=== PATIENT | male | born 1955 | race Caucasian/White ===

== ENCOUNTER 2016-04-22 05:39 | Inpatient (IN) | END 2016-05-07 19:32 | DRG 377 | DX: K92.2 Gastrointestinal hemorrhage, unspecified (principal); G93.40 Encephalopathy, unspecified; N17.9 Acute kidney failure, unspecified; K85.90 Acute pancreatitis without necrosis or infection, unspecified; A04.7 Enterocolitis due to Clostridium difficile; E87.2 Acidosis; I50.22 Chronic systolic (congestive) heart failure; K70.40 Alcoholic hepatic failure without coma; D72.829 Elevated white blood cell count, unspecified; D69.6 Thrombocytopenia, unspecified; K70.30 Alcoholic cirrhosis of liver without ascites; N18.9 Chronic kidney disease, unspecified ==

== ENCOUNTER 2016-06-01 21:41 | Inpatient (IN) | payer OTHER ==
[~2016-06-01] VITALS: Ht 165.1 cm; Wt 55.6 kg
[~2016-06-01 21:41] MED LIST: ALDS PO; HYDR-3498 PO; LACT20SO12 PO; LAS20 PO; METO25TA7 PO; MULTI PO; ONDA4VIA2 IV; PANT40TA4 PO; THIA100T56 PO
[2016-06-01 21:47] VITALS: Ht 165.1 cm; Wt 55.6 kg
[2016-06-01] MEDS ORDERED: SODIUM CHLORIDE 0.9% 1L BAG IV* STA (21:53)
[2016-06-01] MEDS ORDERED: ACET-2047 PO (22:22)
[2016-06-01] MEDS ORDERED: FERR324T7 PO (22:23)
[2016-06-01] MEDS ORDERED: CYCL-319 PO (22:23)
[2016-06-01] MEDS ORDERED: HYDR-906 PO (22:25)
[2016-06-01] MEDS ORDERED: SIME80TA PO (22:26)
[2016-06-01] MEDS ORDERED: OMEP20CA16 PO (22:26)
[2016-06-01] MEDS ORDERED: RIFA550T4 PO (22:27)
--- NOTE | 2016-06-01 22:58 | RADRPT ---
PROCEDURE: Chest. CLINICAL INDICATION: Chest pain. TECHNIQUE: Single frontal view of the chest was obtained. COMPARISON: 03/15/2016. FINDINGS: The cardiac silhouette is within normal limits. The aortic arch is unremarkable. There is no focal consolidation, vascular congestion or pleural effusion. There is mild right basilar atelectasis/sca rring. There is no pneumothorax. IMPRESSION: Right basilar atelectasis/scarring. .Glen Galeano MD, MD Date Time Electronically viewed and signed by .Glen Galeano MD, on 06/01/2016 22:58 .T/
[2016-06-01 23:07] LABS: INR 2.28; PARTIAL THROMBOPLASTIN TIME 33.1 Sec (25.0-35.0); PROTIME 25.4 Sec (12.2-14.2)
[2016-06-01 23:09] LABS: ALBUMIN 2.4 g/dl (3.3-4.9); CHLORIDE 92 mmol/L (97-110); MEAN CORPUSCULAR VOLUME 95.8 fl (82.0-101.0); MEAN PLATELET VOLUME 7.5 fl (7.4-10.4); PLATELET COUNT 147 10^3/UL (140-440); RED BLOOD COUNT 3.97 10^6/ul (4.70-6.10); RED CELL DISTRIBUTION WIDTH 19.3 % (11.5-14.5); SODIUM 123 mmol/L (135-144)
[2016-06-01 23:11] LABS: CREATININE 1.43 mg/dl (0.61-1.24)
[2016-06-01 23:12] LABS: ALANINE AMINOTRANSFERASE 33 IU/L (13-69); ALBUMIN/GLOBULIN RATIO 0.57; ALKALINE PHOSPHATASE 172 IU/L (42-121); ANION GAP 17 (8-16); ASPARTATE AMINO TRANSFERASE 50 IU/L (15-46); BILIRUBIN,INDIRECT 1.2 mg/dl (0-1.1); BILIRUBIN,TOTAL 1.2 mg/dl (0.2-1.3); BLOOD UREA NITROGEN 47 mg/dl (7-20); CARBON DIOXIDE 20 mmol/L (21-31); GLUCOSE 154 mg/dl (70-220); TOTAL PROTEIN 6.6 g/dl (6.1-8.1)
[2016-06-01 23:13] LABS: CALCIUM 11.5 mg/dl (8.4-10.2); CONDITION 1; LH ANALYZER COMMENTS 1; MEAN CORPUSCULAR HEMOGLOBIN 32.8 pg (29.0-33.0); MEAN CORPUSCULAR HGB CONC 34.2 g/dl (32.0-37.0); SUSPECT 1
--- NOTE | 2016-06-01 23:13 | RADRPT ---
PROCEDURE: CT Brain without contrast. CLINICAL INDICATION: Weakness and nonacute stroke TECHNIQUE: A CT of the brain was performed on a [employer] 64-slice CT scanner utilizing axial imaging from the skull base through the vertex without IV contrast. Multiplanar reformatted images were made. Images were reviewed on a PACS workstation. The CTDIvol is 40.45 mGy and the DLP is 808 .27 mGycm. One of the following 3 dose reduction techniques were used: Automated exposure control; adjustment of the mA and/or kV according to patient size; or use of iterative reconstruction technique. COMPARISON: Brain MRI 04/28/2016 FINDINGS: There is no intracranial hemorrhage, mass effect, or midline shift. No extra-axial fluid collection is seen. The ventricles and sulci are age appropriate. Mild diffuse volume loss is present. Mild decreased attenuation is present in the bilateral centrum semiovale and periventricular white matter compatible with mild chronic microvascular ischemic disease. mild vascular calcifications are pres ent of the intracranial internal carotid arteries. The visualized scalp and calvarium are normal. The bilateral orbits are normal. The bilateral para nasal sinuses, mastoid air cells and middle ear cavities are clear. IMPRESSION: 1. No evidence of acute intracranial hemorrhage, infarcts or acute intracranial pathology 2. Mild chronic microvascular ischemic disease and mild diffuse volume loss 3. Mild atherosclerotic vascular disease RPTAT: HDC .Pretty Ding MD, MD Date Time Electronically viewed and signed by .Pretty Ding MD, MD on 06/01/2016 23:13 .C/
--- NOTE | 2016-06-01 23:30 | RADRPT ---
PROCEDURE: CT Abdomen and pelvis without contrast. CLINICAL INDICATION: Abdominal pain. TECHNIQUE: CT scan of the abdomen and pelvis was performed on a multi-detector high-resolution CT scanner. Contiguous axial images were obtained from the lung bases to the ischial tuberosities wit hout intravenous contrast. Coronal and sagittal reformatted images were also obtained. Images were reviewed on the PACS workstation. One or more of the following dose reduction techniques were used: - Automated exposure control. - Adjustment of the mA and/or kV according to patient size. - Use of iterative reconstruction technique. Exam CTD/vol = 9.56 mGy. Total exam DLP = 549.74 mGy-cm. COMPARISON: Correlation is made with the MR done 03/12/2016. FINDINGS: Evaluation of the lung bases demonstrates mild right basilar atelectasis and small pleural effusion. Abdomen: The liver is normal in size with a diffuse nodular contour. There is no focal mass or dil atation of the biliary tree. The gallbladder is not distended. The spleen and pancreas are within normal limits. There is thickening of bilateral adrenal glands. Bilateral kidneys are normal in si ze with no contour deforming mass identified. There is no radiopaque renal or ureteral calculus giovanna ntified. There is no hydronephrosis or hydroureter. There is no retroperitoneal adenopathy. The a bdominal aorta is of normal caliber with mild scattered atherosclerotic calcifications. The stomach is moderately distended. There is moderate thickening of the transverse, descending and sigmoid colon with mild adjacent stranding. There is no bowel obstruction or free air. A normal a ppendix is partially visualized. There is no diverticulosis or diverticulitis. There is mild free fluid. Pelvis: The bladder is unremarkable. The prostate and seminal vesicles are within normal limits. There is no significant pelvic adenopathy or free fluid. Evaluation of the osseous structures demonstrates no suspicious lytic or blastic lesion. There is a defect of the left pars interarticularis of L5. IMPRESSION: Moderate thickening of the mid to distal colon represents nonspecific infectious/inflammatory coliti s. Clinically correlate with C difficile colitis. Moderately distended stomach. Mild right basilar atelectasis and small pleural effusion. Diffuse nodular contour of the liver suggestive of cirrhosis. Clinically correlate. Mild abdominal free fluid. Thickening of the adrenal glands. Mild vascular calcifications reflective of atherosclerosis. Left pars defect of L5. .Glen Galeano MD, MD Date Time Electronically viewed and signed by .Glen Galeano MD, MD on 06/01/2016 23:30 .T/
[2016-06-01 23:33] LABS: TROPONIN-I < 0.012 ng/ml (0.00-0.12)
[2016-06-01 23:36] LABS: POTASSIUM 6.2 mmol/L (3.5-5.1)
[2016-06-02] VITALS (11 sets, daily range): BP systolic 34–149; BP diastolic 14–96; PULSE 105–197; RESP 20–39
[2016-06-02] MEDS ORDERED: metroNIDAZOLE 500 MG TAB NGT ONE
[2016-06-02] MEDS ORDERED: NA POLYST SULFON 15 GM/60 ML BTL PO ONE
[2016-06-02] MEDS ORDERED: ATROPINE 1 MG/10 ML SYRINGE ONE
[2016-06-02] MEDS ORDERED: CEFEPIME 1GM/50 ML (PMX) 50 ML IVPB ONE
[2016-06-02] MEDS ORDERED: ETOMIDATE 20 MG INJ ONE
[2016-06-02] MEDS ORDERED: SUCCINYLCHOLINE CHLORIDE 100 MG/5 ML SYG IV ONE
[2016-06-02] MEDS ORDERED: NA BICARBONATE 8.4% 50 ML SYG ONE
[2016-06-02] MEDS ORDERED: CA CHLORIDE 10% 10 ML SYRINGE ONE
[2016-06-02] MEDS ORDERED: SOD CHLORIDE 0.9% 1,000 ML IV ONE (00:30)
[2016-06-02] MEDS ORDERED: ONDANSETRON 4 MG INJ IV PRN (00:30)
[2016-06-02] MEDS ORDERED: INSULIN REGULAR, HUMAN 100 UNIT/1 ML 3ML VIAL IV ONE (00:30)
[2016-06-02] MEDS ORDERED: ACETAMINOPHEN 325 MG TAB PO PRN ×2 (00:30→09:30)
[2016-06-02] MEDS ORDERED: VANCOMYCIN 1 GM (PMX) 250 ML IVPB SCH (00:30)
[2016-06-02] MEDS ORDERED: DEXTROSE 50% 50 ML SYRINGE IV ONE (00:30)
[2016-06-02 00:37] LABS: ADD UMIC YES; URINE BILIRUBIN (Dip) NEGATIVE (NEGATIVE); URINE BLOOD (Dip) TRACE (NEGATIVE); URINE COLOR YELLOW (YELLOW); URINE GLUCOSE (Dip) NEGATIVE (NEGATIVE); URINE KETONES (Dip) NEGATIVE (NEGATIVE); URINE LEUKOCYTE ESTERASE (Dip) NEGATIVE (NEGATIVE); URINE NITRITE (Dip) NEGATIVE (NEGATIVE); URINE TOTAL PROTEIN (Dip) NEGATIVE (NEGATIVE); URINE UROBILINOGEN (Dip) 0.2 E.U./dL (0.1-1.0)
[2016-06-02 00:45] LABS: EOSINOPHILS # 1.3 10^3/ul (0.0-0.5); LYMPHOCYTES # 2.5 10^3/ul (0.8-2.9); MONOCYTE # 3.8 10^3/ul (0.3-0.9); PLATELET ESTIMATE PLT APPEAR ADEQUATE
[2016-06-02 00:53] LABS: BACTERIA,URINE MODERATE; URINE RBCS NONE SEEN /HPF (0)
--- NOTE | 2016-06-02 01:10 | ERA ---
ER Documentation Chief Complaint Date/Time DATE: 06/02/16 TIME: 01:00 Chief Complaint [facility], FTT HPI This 61-year-old male was sent from a rehabilitation facility for having generalized weakness and failure to thrive. Going to his paperwork he has a history of C. difficile, GI bleed, hypertension, congestive heart failure. On initial assessment of the patient I would say it is more severe than failure to thrive as the patient is only mumbling incoherently in response to questions and appears very subdued. He is not able to provide a history. ROS Unobtainable Medications Home Meds Active Scripts Thiamine* (Vitamin B-1*) 100 Mg Tablet, 100 MG PO DAILY for 30 Days, TAB Prov:FARZANA GARCIA 05/07/16 Spironolactone* (Aldactone*) 5 Mg/Ml (COMPOUNDED) Susp, 25 MG PO DAILY for 30 Days Prov:FARZANA GARCIA 05/07/16 Metoprolol Succinate* (Toprol XL*) 25 Mg Tab.sr.24h, 25 MG PO BID for 30 Days Prov:FARZANA GARCIA 05/07/16 Lactulose* (Cephulac*) 20 Gm/30 Ml Soln, 20 GM PO Q8 for 30 Days Prov:FARZANA GARCIA 05/07/16 Furosemide (Lasix) 20 Mg Tab, 20 MG PO DAILY for 30 Days, TAB Prov:FARZANA GARCIA 05/07/16 Multivitamins* (Theragran*) 1 Tab Tab, 1 TAB PO DAILY for 30 Days, TAB Prov:CHRIS GOODWIN MD 03/27/16 Reported Medications Rifaximin* (Xifaxan*) 550 Mg Tablet, 550 MG PO BID, TAB 06/01/16 Simethicone* (Anti-Gas/80*) 80 Mg Tab.chew, 80 MG PO Q6H Y for DISTENSION/GAS/ BLOATING, TAB.CHEW 06/01/16 Omeprazole* (Omeprazole*) 20 Mg Capsule.dr, 20 MG PO DAILY, #30 CAP 06/01/16 Hydrocodone/Acetaminophen ([place] 5-325 Tablet) 1 Each Tablet, 2 EACH PO Q4 Y for SEVERE PAIN LEVEL 7-10, TAB 06/01/16 Cyclobenzaprine Hcl* (Cyclobenzaprine Hcl*) 10 Mg Tablet, 10 MG PO QAM, #60 TAB 06/01/16 Ferrous Gluconate (Ferrous Gluconate) 324 Mg Tablet, 324 MG PO DAILY, TAB 06/01/16 Acetaminophen* (Acetaminophen*) 650 Mg Tablet, 650 MG PO Q6H Y for MILD PAIN LEVEL 1-3, #30 TAB 06/01/16 Discontinued Scripts Pantoprazole* (Pantoprazole*) 40 Mg Tablet.dr, 40 MG PO DAILY@06 for 30 Days Prov:RADHAFARZANA 05/07/16 Hydrocodone Bit-Acetaminophen (Hydrocodone Bit-APAP) 5-325MG Tablet, 1 TAB PO Q6H Y for MODERATE PAIN LEVEL 4-6, #30 TAB Prov:RADHAFARZANA 05/07/16 Ondansetron Hcl* (Ondansetron Hcl* Inj) 4 Mg/2 Ml Vial, 4 MG IV Q6H Y for NAUSEA AND/OR VOMITING for 30 Days, VIAL Prov:CHRIS GOODWIN MD 03/27/16 Allergies Allergies: Coded Allergies: No Known Drug Allergies (Verified Allergy, Mild, 02/14/15) PMhx/Soc Anesthesia Reaction: No Hx Neurological Disorder: Yes (right calf weakness) Hx Respiratory Disorders: No Hx Cardiac Disorders: Yes (HTN) Hx Psychiatric Problems: Yes (depression) Hx Miscellaneous Medical Probl: Yes (Alcohol-induced liver cirrhosis, recent GI bleed Feb 2016, sepsis with UTI) Hx Alcohol Use: Yes (over 30 years) Hx Substance Use: Yes (unable to obtain more info) Hx Tobacco Use: No Smoking Status: Unknown if ever smoked Physical Exam Vitals Vital Signs Date Time Temp Pulse Resp B/P Pulse Ox O2 Delivery O2 Flow Rate FiO2 06/01/16 21:47 97.4 108 18 107/56 95 Physical Exam Const: [] No acute distress, somewhat ill-appearing Head: Atraumatic Eyes: Normal Conjunctiva, EOMI, PERRLA ENT: Normal External Ears, Nose and Mouth., Dry mucous membranes of the mouth Neck: Full range of motion..~ No JVD apparent meningismus. Resp: Clear to auscultation bilaterally, shallow respirations Cardio: Regular tachycardia, no murmurs Abd: Soft, no apparent tenderness to palpation, non distended. Normal bowel sounds Skin: No petechiae or rashes Back: No midline or flank tenderness Ext: No cyanosis, or edema, distal pulses intact all 4 extremities Neur: Awake and alert, unable to answer any orientation questions or even yesterday questions patient and his mumbles as if he is maybe trying to answer, apparently moves all 4 extremities Psych: Normal Mood and Affect Result Diagram: 06/01/16224206/01/163 Results 24 hrs Laboratory Tests Test 06/01/16 22:43 06/01/16 22:45 06/01/16 23:20 06/01/16 23:25 Activated Partial Thromboplast Time 33.1Sec Alanine Aminotransferase (ALT/SGPT) 33IU/L Albumin 2.4g/dl Albumin/Globulin Ratio 0.57 Alkaline Phosphatase 172IU/L Anion Gap 17 Aspartate Amino Transf (AST/SGOT) 50IU/L Band Neutrophils % 19.0% Blast Cells % 2.0% Blastocytes # 2.5 Blood Morphology Comment Blood Urea Nitrogen 47mg/dl Calcium Level 11.5mg/dl Carbon Dioxide Level 20mmol/L Chloride Level 92mmol/L Creatinine 1.43mg/dl Direct Bilirubin 0.00mg/dl Eosinophils # 1.310^3/ul Eosinophils % 1.0% Globulin 4.20g/dl Glucose Level 154mg/dl Hematocrit 38.0% Hemoglobin 13.0g/dl INR International Normalized Ratio 2.28 Indirect Bilirubin 1.2mg/dl Lactic Acid Level 6.4mmol/L 7.3mmol/L Lymphocytes # 2.510^3/ul Lymphocytes % 2.0% Mean Corpuscular Hemoglobin 32.8pg Mean Corpuscular Hemoglobin Concent 34.2g/dl Mean Corpuscular Volume 95.8fl Mean Platelet Volume 7.5fl Metamyelocytes # 8.8 Metamyelocytes % 7.0% Monocytes # 3.810^3/ul Monocytes % 3.0% Myelocytes # 10.0 Myelocytes % 8.0% Neutrophils # 70.010^3/ul Neutrophils % 56.0% Platelet Count 87491^3/UL Platelet Estimate PLT APPEAR ADEQUATE Potassium Level 6.2mmol/L Promyelocytes # 2.5 Promyelocytes % 2.0% Prothrombin Time 25.4Sec Prothrombin Time Ratio 2.0 Red Blood Count 3.9710^6/ul Red Cell Distribution Width 19.3% Sodium Level 123mmol/L Total Bilirubin 1.2mg/dl Total Protein 6.6g/dl Troponin I < 0.012ng/ml White Blood Count 125.010^3/ul Thyroid Stimulating Hormone (TSH) 1.090MIU/L Ammonia 38umol/l Test 06/02/16 00:00 06/02/16 01:09 Urine Amphetamines Screen Negative Urine Bacteria MODERATE Urine Barbiturates Negative Urine Benzodiazepines Screen Negative Urine Bilirubin NEGATIVE Urine Cannabinoids Negative Urine Clarity CLEAR Urine Cocaine Screen Negative Urine Color YELLOW Urine Glucose NEGATIVE% Urine Hemoglobin TRACE Urine Ketones NEGATIVE Urine Leukocyte Esterase NEGATIVE Urine Microscopic RBC NONE SEEN/HPF Urine Microscopic WBC 5-10/HPF Urine Nitrite NEGATIVE Urine Opiates Screen Negative Urine Specific [place] 1.015 Urine Total Protein NEGATIVE Urine Urobilinogen 0.2 E.U./dL Urine pH 5.5 Arterial Blood HCO3 15.7mmol/L Arterial Blood Base Excess -7.6mmol/L Arterial Blood Oxygen Saturation 93.7mmHG Conor Test N/A Arterial Blood Gas Puncture Site Right Brachial Arterial Blood Carboxyhemoglobin 0.3% Arterial Blood Date Drawn 06/02/2016 1:17:02 AM Arterial Blood Methemoglobin 0.6% Arterial Blood pCO2 (Temp correct) 25.5mmhg Arterial Blood pH (Temp corrected) 7.406 Arterial Blood pO2 (Temp corrected) 75.9mmHG Blood Gas A-a O2 Differential 43.3mmHg Blood Gas Actual Respiration Rate 31 Blood Gas Critical Value Read Back Ariana DONAHUE Blood Gas Modality ROOM AIR Blood Gas Notified Time 06/02/2016 1:25:52 AM Blood Gas Notified Whom BL Blood Gas Specimen Source Blood arterial Blood Gas Temperature 37.0C FiO2 21.0% Oxyhemoglobin Percent 92.9% Total Hemoglobin 10.9g/dl Current Medications Medications (Trade) Dose Ordered Sig/Roly Route PRN Reason Start Time Stop Time Status Last Admin Dose Admin Sodium Chloride (NS) 1,750 ml BOLUS OVER 2 HOURS STAT IV* 06/01/16 21:53 06/01/16 21:55 DC 06/01/16 23:51 Sodium Polystyrene Sulfonate 30 gm 30 gm ONCE ONCE PO 06/02/16 00:00 06/02/16 00:07 DC 06/02/16 01:55 Cefepime HCl (Maxipime 1gm/50 ml (Pmx)) 50 ml @ 100 mls/hr ONCE ONCE IVPB 06/02/16 00:00 06/02/16 00:29 DC 06/02/16 00:34 Metronidazole 500 mg 500 mg ONCE ONCE NGT 06/02/16 00:00 06/02/16 00:07 DC 06/02/16 01:54 Sodium Chloride 1,000 ml @ 1,000 mls/hr Q1H ONCE IV 06/02/16 00:30 06/02/16 01:29 DC 06/02/16 01:57 Vancomycin HCl (Vancocin) 250 ml @ 125 mls/hr ONCE IVPB 06/02/16 00:30 06/02/16 02:29 06/02/16 01:27 Insulin Human Regular (Humulin R) 10 unit ONCE ONCE IV 06/02/16 00:30 06/02/16 00:31 DC 06/02/16 02:03 Dextrose (D50w Syringe) 50 ml ONCE ONCE IV 06/02/16 00:30 06/02/16 00:31 DC 06/02/16 02:00 Ondansetron HCl (Zofran Inj) 4 mg ER BRIDGE PRN IV NAUSEA AND/OR VOMITING 06/02/16 00:30 06/03/16 00:29 06/02/16 01:34 Acetaminophen (Tylenol Tab) 650 mg ER BRIDGE PRN PO MILD PAIN/FEVER 06/02/16 00:30 06/03/16 00:29 Procedures/MDM Patient with multiple metabolic abnormalities. Likely severe sepsis. No obvious intracranial abnormalities found. Patient does have colitis on CAT scan may have C. difficile colitis consistent with a low white blood cell count although it this level leukemia is not excluded. Patient with renal insufficiency which is likely acute given a lactic acid with hyperkalemia. He was given insulin and dextrose as well as Kayexalate through an NG tube for the hyperkalemia. Also treated with cefepime and Flagyl by mouth for empiric treatment of sepsis and specific treatment of likely C. difficile colitis. Patient does have cirrhosis with ascites and elevated ammonia. However ammonia is only slightly elevated likely from hepatic encephalopathy is less likely. Patient was hydrated with 30 mL/kg of IV fluid plus an extra liter as his lactic acid initially slightly went up after fluid administration. Spoke with Dr. Weinstein who will be admitting the patient to telemetry for further monitoring of his condition. CT head interpretation by myself: I see no acute process no hemorrhage no mass effect no midline shift no skull fractures CT abdomen and pelvis interpretation: No abnormalities including moderate to severe colitis, liver cirrhosis, there is no evidence for obstruction, no free air, no acute fractures EKG interpretation: Sinus tachycardia rate of 107, T-wave flattening in the lateral leads with mild T-wave inversion in lead V6, normal axis, no ST elevations or depressions concerning for acute ischemia, normal intervals. monitor tech interpretation: Persistent sinus tachycardia. Rectal care time 44 minutes: Includes treatment of severe sepsis, careful fluid administration, antibiotic administration, multiple visits the patient's bedside to reassess cardio dynamic in neurologic status, treatment of hyperkalemia, discussion with admitting doctor, chart review. This does not include any billable procedures. Departure Diagnosis: Primary Impression: Sepsis Additional Impressions: Colitis Metabolic encephalopathy Hyponatremia Lactic acidosis Hyperkalemia Renal failure Liver cirrhosis Condition: Serious RUCHI LUNA DO Jun 02, 2016 01:10
[2016-06-02 01:15] LABS: BENZODIAZEPINES Negative (NEGATIVE)
[2016-06-02 01:23] LABS: BARBITURATES Negative (NEGATIVE); CANNABINOIDS Negative (NEGATIVE); COCAINE Negative (NEGATIVE); OPIATES Negative (NEGATIVE)
[2016-06-02 01:26] LABS: AADO2 Arterial 43.3 mmHg (7.0-24.0); Arterial Base Excess -7.6 mmol/L (-3.0-3); Arterial COHb 0.3 % (0.0-3.0); Arterial Fraction of Oxyhgb 92.9 % (93.0-99.0); Arterial HCO3 15.7 mmol/L (22.0-26.0); Arterial MetHb 0.6 % (0.0-1.5); Arterial Total Hemglobin 10.9 g/dl (12.0-18.0); MODE ROOM AIR
[2016-06-02] MEDS ORDERED: CEFEPIME 2GM/50 ML (PMX) 50 ML IVPB SCH (09:30)
[2016-06-02] MEDS ORDERED: VANCOMYCIN IV PER PHARMACY XX SCH (09:30)
[2016-06-02] MEDS ORDERED: SOD CHLORIDE 0.9% 1,000 ML IV SCH ×3 (09:30→17:30)
[2016-06-02] MEDS ORDERED: NA POLYST SULFON 15 GM/60 ML BTL PR ONE (12:00)
--- NOTE | 2016-06-02 12:04 | CONS ---
DATE OF ADMISSION: 06/01/2016 DATE OF CONSULTATION: HISTORY OF PRESENT ILLNESS: The patient is a 61-year-old gentleman brought to hospital from [facility] after noticing weakness, failure to thrive, recent history of Clostridium difficile colitis, GI bleed, past medical history of hypertension, congestive heart failure. The patient was noted to have severe sepsis with a white count of 125, hyponatremia, hyperkalemia, acute renal insu fficiency. Creatinine was noted to be 1.43, his baseline creatinine is 0.75. He was discharged in April with C. diff colitis, GI bleed, alcoholic liver cirrhosis, cardiomyopathy. There has been n o recent fevers, chills, nausea, vomiting. PAST MEDICAL HISTORY: As above. MEDICATIONS: 1. Thiamine. 2. Aldactone. 3. Metoprolol. 4. Lactulose. 5. Lasix. 6. Multivitamins. 7. Rifaximin. 8. Simethicone. 9. Omeprazole. 10. Hydrocodone. 11. Cyclobenzaprine. 12. Ferrous gluconate. 13. Tylenol. ALLERGIES: PATIENT HAS NO KNOWN ALLERGIES. SOCIAL HISTORY: Lives in a facility. He does not smoke, drink or do drugs. History of alcohol abu se. FAMILY HISTORY: No history of kidney disease. REVIEW OF SYSTEMS: Unobtainable. PHYSICAL EXAMINATION: VITAL SIGNS: Shows temperature 97.4, blood pressure 107/56, pulse of 108. HEENT: Normocephalic, atraumatic. Pupils are equal and round and reactive to light. NECK: Supple. HEART: Regular rate and rhythm, but slightly tachycardic. ABDOMEN: Soft, nontender. EXTREMITIES: No clubbing, cyanosis or edema. LABORATORY EVALUATION: White count was reported at 125, hemoglobin 13, hematocrit 38. Lactic acid 6.9. TSH 1.09. Sodium 123, potassium 6.2, BUN 47, creatinine 1.43, albumin is 2.4. UA is reviewed on microscopy. Chest x-ray is reviewed by radiologist. IMPRESSION: 1. Acute kidney injury, complicated by hyperkalemia, probably acute tubular necrosis from infection , rule out vasomotor nephropathy. We will start by checking urine studies, serial labs. Repeat pot assium. May need dialysis. Potassium is improved, but typically with this kind of kidney failure i t should not be as complicated. 2. Hyperkalemia, probably due to renal failure complicated by Aldactone use. Bactrim should be hel d. Check EKG, follow up serial labs. Avoid potassium supplementation. 3. Hyponatremia, hypovolemic. Start by checking urine studies. May have some pseudohyponatremia i n light of the marked leukocytosis. 4. Severe sepsis. Continue volume resuscitation as per protocol. 5. Liver disease. Continue the same. 6. History of GI bleed with esophageal varices status post banding x7. 7. Cardiomyopathy. 8. Encephalopathy. 9. Clostridium difficile colitis. Dictated By: DONNA RANDOLPH MD DF/NTS Conf#: [id number] DID#: [id number]
[2016-06-02] MEDS ORDERED: VANCOMYCIN 750 MG in SOD CHLORIDE 0.9% 150 ML IVPB SCH (13:30)
[2016-06-02 13:42] LABS: MEAN PLATELET VOLUME 7.2 fl (7.4-10.4); PLATELET COUNT 97 10^3/UL (140-440); RED BLOOD COUNT 2.95 10^6/ul (4.70-6.10); RED CELL DISTRIBUTION WIDTH 19.3 % (11.5-14.5); UNCORRECTED WBC 144.8 10^3/ul (4.8-10.8); WHITE BLOOD COUNT 144.8 10^3/ul (4.8-10.8)
[2016-06-02 13:44] LABS: CONDITION 1; HEMATOCRIT 28.8 % (42.0-52.0); HEMOGLOBIN 10.1 g/dl (14.0-18.0); LH ANALYZER COMMENTS 1; MEAN CORPUSCULAR HEMOGLOBIN 34.3 pg (29.0-33.0); MEAN CORPUSCULAR HGB CONC 35.1 g/dl (32.0-37.0); MEAN CORPUSCULAR VOLUME 97.7 fl (82.0-101.0); SUSPECT 1
[2016-06-02 13:54] LABS: ALBUMIN 1.9 g/dl (3.3-4.9); POTASSIUM 5.8 mmol/L (3.5-5.1)
[2016-06-02 13:56] LABS: ALBUMIN 1.9 g/dl (3.3-4.9); CREATININE 1.51 mg/dl (0.61-1.24)
[2016-06-02 13:57] LABS: ALBUMIN/GLOBULIN RATIO 0.55; BILIRUBIN,INDIRECT 0.9 mg/dl (0-1.1); BILIRUBIN,TOTAL 0.9 mg/dl (0.2-1.3); TOTAL PROTEIN 5.3 g/dl (6.1-8.1)
[2016-06-02 13:58] LABS: CALCIUM 9.8 mg/dl (8.4-10.2)
[2016-06-02 13:59] LABS: BILIRUBIN,INDIRECT 0.9 mg/dl (0-1.1); BILIRUBIN,TOTAL 0.9 mg/dl (0.2-1.3); MAGNESIUM 2.2 mg/dl (1.7-2.5); TOTAL PROTEIN 5.3 g/dl (6.1-8.1)
[2016-06-02] MEDS ORDERED: LACTULOSE 30ML CUP PO SCH (14:00)
[2016-06-02] MEDS ORDERED: metroNIDAZOLE 500 MG TAB PO SCH (15:08)
--- NOTE | 2016-06-02 16:07 | CONS ---
DATE OF ADMISSION: 06/02/2016 DATE OF CONSULTATION: 06/02/2016 TYPE OF CONSULTATION: Infectious Disease. REASON FOR CONSULTATION: Antibiotic management. HISTORY OF PRESENT ILLNESS: Jayden Tee is a 61-year-old male who was brought [facility] from [facility] after noticing weakness and failure to thrive. His past problems include: 1. History of Clostridium difficile colitis. 2. Gastrointestinal bleed. 3. Hypertension. 4. Coronary artery disease with congestive heart failure. 5. Alcoholic cirrhosis of the liver. 6. Cardiomyopathy. The patient was noted to have severe sepsis and on admission had a white count of 125,000, hemoglobi n and hematocrit are 13/38, platelet count 147,000. His potassium was up to 6.2. BUN and creatinin e was 47/1.43. PAST MEDICAL HISTORY: Operations: None. FAMILY HISTORY: Noncontributory. SOCIAL HISTORY: He does not smoke. He does have substance abuse and he has been drinking for over 30 years. ALLERGIES: NONE TO PENICILLIN, SULFA OR FOODS. MEDICATIONS: Per chart. REVIEW OF SYSTEMS: As per HPI. PHYSICAL EXAMINATION: GENERAL: The patient is a chronically ill-appearing male who is awake, responsive, in no a cute distress. VITAL SIGNS: Stable. He is afebrile. SKIN: Without generalized rash. HEENT: Within normal limits. NECK: Supple. LYMPH NODES: None palpable. CHEST: Decreased breath sounds at the bases. HEART: Without murmur or gallop. ABDOMEN: Soft, nontender, without organosplenomegaly or masses. EXTREMITIES: Without cyanosis, clubbing, or edema. RECTAL AND GENITAL: Deferred. NEUROLOGIC: He seems to be encephalopathic. He moves all extremities. No focal neurological abnor malities. IMPRESSION AND PLAN: The patient either has sepsis or underlying myeloproliferative disease. He ce rtainly has acute kidney injury, complicated by hyperkalemia. He was started on vancomycin. He was given cefepime. He was given Flagyl 1 dose and rifaximin. His urine shows no growth after 24 hour s. His C. difficile is positive. So he should be receiving oral vancomycin as well and possibly Fl agyl. I will dictate my findings to the hospitalist and to Dr. Guerra. Dictated By: RAMA HAYNES MD, JD/LAST Conf#: [id number] DID#: [id number]
[2016-06-02] MEDS ORDERED: SOD CHLORIDE 0.9% 250 ML IV* ONE (16:34)
[2016-06-02] MEDS ORDERED: ALBUMIN HUMAN 25% 100 ML ONE (16:39)
[2016-06-02] MEDS ORDERED: ALBUMIN HUMAN 5% 250 ML ONE (16:40)
[2016-06-02] MEDS ORDERED: EPINEPHrine 4 MG in DEXTROSE 5% 246 ML IV SCH (17:00)
[2016-06-02] MEDS ORDERED: EPINEPHRINE 4 MG in D5W 250 ML IV SCH (17:00)
[2016-06-02] MEDS ORDERED: NORepinephrine 8MG/250 ML (PMX 250 ML IV SCH (17:09)
[2016-06-02 17:39] LABS: ALBUMIN 1.3 g/dl (3.3-4.9)
[2016-06-02 17:40] LABS: HEMATOCRIT 15.8 % (42.0-52.0); MEAN CORPUSCULAR HGB CONC 31.6 g/dl (32.0-37.0); MEAN CORPUSCULAR VOLUME 101.3 fl (82.0-101.0); PLATELET COUNT 56 10^3/UL (140-440); RED BLOOD COUNT 1.56 10^6/ul (4.70-6.10); RED CELL DISTRIBUTION WIDTH 19.8 % (11.5-14.5); UNCORRECTED WBC 91.3 10^3/ul (4.8-10.8); WHITE BLOOD COUNT 91.3 10^3/ul (4.8-10.8)
[2016-06-02 17:41] LABS: CREATININE 1.75 mg/dl (0.61-1.24)
[2016-06-02 17:42] LABS: ALBUMIN/GLOBULIN RATIO 0.68; BILIRUBIN,INDIRECT 0.4 mg/dl (0-1.1); BILIRUBIN,TOTAL 0.4 mg/dl (0.2-1.3); TOTAL PROTEIN 3.2 g/dl (6.1-8.1)
[2016-06-02 17:43] LABS: CALCIUM 9.7 mg/dl (8.4-10.2)
[2016-06-02] MEDS ORDERED: EPINEPHrine 0.1 MG/ML SYG ONE ×2 (17:43)
[2016-06-02] MEDS ORDERED: HYDROCORTISONE 100 MG INJ IV SCH (17:45)
--- NOTE | 2016-06-02 17:53 | RADRPT ---
PROCEDURE: XR Chest. CLINICAL INDICATION: Post intubation. TECHNIQUE: Portable AP supine view of the chest was obtained. COMPARISON: 06/01/2016 FINDINGS: The cardiomediastinal silhouette is within normal limits. The distal tip of the new endotracheal tu be is projecting at the level of an overlying monitoring wire, approximately 2 cm above the manuel. Some right perihilar subsegmental atelectasis is slightly worse compared to the prior study. The l eft lung is grossly clear. There is no evidence for pleural effusion, pneumothorax or pulmonary vas cular congestion. The osseous structures are intact with no evidence for acute abnormality. Gaseous distension of the stomach is again noted. RPTAT:HJJR IMPRESSION: 1. Distal tip of a new endotracheal tube is approximately 2 cm above the manuel. 2. Slight interval increase in right perihilar subsegmental atelectasis compared to 06/01/2016. 3. Multiple overlying monitoring wires slightly limited examination. 4. Persistent gaseous distension of the stomach. Physician Radha Date Time Electronically viewed and signed by Physician Radha on 06/02/2016 17:53 JR/
[2016-06-02 17:56] LABS: CONDITION 1; LH ANALYZER COMMENTS 1; MEAN PLATELET VOLUME 8.3 fl (7.4-10.4); SUSPECT 1
[2016-06-02] MEDS ORDERED: VANCOMYCIN HCL 250 MG/5ML POSYG PO SCH (18:00)
[2016-06-02 18:05] LABS: PROTIME > 100.0 Sec (12.2-14.2); PT RATIO 7.8
[2016-06-02 18:08] LABS: FIBRINOGEN < 40.0 mg/dl (207-461)
[2016-06-02 18:11] LABS: D-DIMER > 10000.00 ng/ml (<460)
[2016-06-02 18:12] LABS: PARTIAL THROMBOPLASTIN TIME > 180.0 Sec (25.0-35.0)
[2016-06-02 18:14] LABS: INR > 6.00
[2016-06-02 18:23] LABS: PLATELET COUNT 56 10^3/UL (140-440)
--- NOTE | 2016-06-02 18:52 | OPR ---
DATE OF OPERATION: 06/02/2016 PRIMARY PHYSICIAN: Mario Castro MD OPERATION: Emergent endotracheal intubation. INDICATION: Acute profound hypercapnic hypoxemic respiratory failure, altered mental status. CONSENT: This was an emergent procedure and a 2-physician consent had to be obtained. MEDICATIONS: Etomidate 20 mg IV and succinylcholine 60 mg IV push. [facility] WINDER: Alejandro Leong MD TECHNIQUE: I was rounding in the ICU when I heard that a patient that was just transferred there w as altered and desaturating. I immediately went and observed the patient was unresponsive, pale, an d having active hematemesis. I immediately proceeded to ventilate the patient with an Ambu bag with 100% FIO2. After the patient received induction with rapid sequence induction, a MAC 3 blade was u sed for direct laryngoscopy. The patient had massive amounts of hematemesis that required suctionin g over 600 mL of fluid. Under direct visualization after suctioning, a grade II view of the cords was obtained. A 7.5 endotracheal tube was advanced and the stylet was removed. Initial confirmatio n was made by end tidal CO2. COMPLICATIONS: None. Dictated By: ALEJANDRO LEONG MD NK/NTS Conf#: [id number] DID#: [id number] CC: MEAGAN DOMINGUEZ MD; MARIO CASTRO MD;*EndCC*
--- NOTE | 2016-06-02 18:55 | OPR ---
DATE OF OPERATION: 06/02/2016 PROCEDURE: Left femoral triple lumen catheter insertion. INDICATION: Cardiopulmonary arrest in need for IV access. MEDICATIONS: Lidocaine 1%, 2 mL locally. TECHNIQUE: Under suboptimal sterile conditions, a triple lumen central venous catheter was inserted into the left femoral vein and the guidewire was removed. This was during the patient receiving ca rdiopulmonary resuscitation. Thereby, it was impossible to ensure complete sterility, given the acu ity of the situation. CONSENT: This was an emergent procedure and a 2-physician consent was obtained. Upon completion of the procedure, all ports were flushed and the catheter was sutured in place with 3-0 silk sutures. Dictated By: MANOLO LEONG MD NK/NTS Conf#: [id number] DID#: [id number] CC: POONAM PÉREZ MD; MEAGAN DOMINGUEZ MD;*EndCC*
[2016-06-02] MEDS ORDERED: OCTREOTIDE 1 MG in SOD CHLORIDE 0.9% 95 ML IV SCH (19:00)
[2016-06-02] MEDS ORDERED: SODIUM BICARBONATE (IV ADD) 150 MEQ in DEXTROSE 5% 1,000 ML IV SCH (19:00)
[2016-06-02] MEDS ORDERED: VASOPRESSIN 60 UNIT in DEXTROSE 5% 57 ML IV SCH (19:00)
[2016-06-02] MEDS ORDERED: PANTOPRAZOLE IV 80 MG in SOD CHLORIDE 0.9% 100 ML IV SCH (19:00)
[2016-06-02] MEDS ORDERED: METOPROLOL (XL) 25 MG TAB PO SCH (21:00)
[2016-06-02] MEDS ORDERED: RIFAXIMIN 550 MG TAB PO SCH (21:00)
--- NOTE | 2016-06-02 22:01 | CONS ---
Date/Time of Note Date/Time of Note DATE: 06/02/16 TIME: 17:56 Consultation Date/Type/Reason Admit Date/Time Jun 02, 2016 at 00:25 Date of Consultation: Jun 02, 2016 Type of Consultation: HEMEONC Reason for Consultation ANEMIA LEUKOCYTOSIS Referring Provider: FARZANA GARCIA Hx of Present Illness The patient is a 61-year-old gentleman brought to hospital from [facility] after noticing weakness, failure to thrive, recent history of Clostridium difficile colitis, GI bleed, past medical history of hypertension, congestive heart failure. The patient was noted to have severe sepsis with a white count of 125, hyponatremia, hyperkalemia, acute renal insufficiency. Creatinine was noted to be 1.43, his baseline creatinine is 0.75. He was discharged in April with C. diff colitis, GI bleed, alcoholic liver cirrhosis , cardiomyopathy. There has been no recent fevers, chills, nausea, vomiting. PAST MEDICAL HISTORY: As above. MEDICATIONS: 1. Thiamine. 2. Aldactone. 3. Metoprolol. 4. Lactulose. 5. Lasix. 6. Multivitamins. 7. Rifaximin. 8. Simethicone. 9. Omeprazole. 10. Hydrocodone. 11. Cyclobenzaprine. 12. Ferrous gluconate. 13. Tylenol. ALLERGIES: PATIENT HAS NO KNOWN ALLERGIES. SOCIAL HISTORY: Lives in a facility. He does not smoke, drink or do drugs. History of alcohol abuse. FAMILY HISTORY: No history of kidney disease. REVIEW OF SYSTEMS: Unobtainable. Past Surgical History Past Surgical Hx: no surgical history Social History Smoking Status: Never smoker Exam/Review of Systems Vital Signs Vitals Vital Signs Date Time Temp Pulse Resp B/P Pulse Ox O2 Delivery O2 Flow Rate FiO2 06/02/16 18:00 51/14 06/02/16 17:30 148 31 06/02/16 16:50 100 100 06/02/16 16:00 Mask 06/02/16 12:10 97.0 Intake and Output 06/01/16 06/01/16 06/02/16 15:00 23:00 07:00 Intake Total 1750 ml 1300 ml Balance 1750 ml 1300 ml Results Result Diagram: 06/02/16 1700 06/02/16 1700 Results 24 hrs Laboratory Tests Test 06/01/16 22:43 06/01/16 22:45 06/01/16 23:20 06/01/16 23:25 Activated Partial Thromboplast Time 33.1 Alanine Aminotransferase (ALT/SGPT) 33 Albumin 2.4 L Albumin/Globulin Ratio 0.57 Alkaline Phosphatase 172 H Anion Gap 17 H Aspartate Amino Transf (AST/SGOT) 50 H Band Neutrophils % 19.0 H Blast Cells % 2.0 H Blastocytes # 2.5 Blood Morphology Comment Blood Urea Nitrogen 47 H Calcium Level 11.5 H Carbon Dioxide Level 20 L Chloride Level 92 L Creatinine 1.43 H Direct Bilirubin 0.00 Eosinophils # 1.3 H Eosinophils % 1.0 Globulin 4.20 H Glucose Level 154 Hematocrit 38.0 #L Hemoglobin 13.0 #L INR International Normalized Ratio 2.28 Indirect Bilirubin 1.2 H Lactic Acid Level 6.4 *H 7.3 *H Lymphocytes # 2.5 Lymphocytes % 2.0 L Mean Corpuscular Hemoglobin 32.8 Mean Corpuscular Hemoglobin Concent 34.2 Mean Corpuscular Volume 95.8 Mean Platelet Volume 7.5 Metamyelocytes # 8.8 Metamyelocytes % 7.0 H Monocytes # 3.8 H Monocytes % 3.0 Myelocytes # 10.0 Myelocytes % 8.0 H Neutrophils # 70.0 H Neutrophils % 56.0 Platelet Count 147 # Platelet Estimate PLT APPEAR ADEQUATE Potassium Level 6.2 *H Promyelocytes # 2.5 Promyelocytes % 2.0 H Prothrombin Time 25.4 #H Prothrombin Time Ratio 2.0 Red Blood Count 3.97 #L Red Cell Distribution Width 19.3 H Sodium Level 123 L Total Bilirubin 1.2 Total Protein 6.6 Troponin I < 0.012 White Blood Count 125.0 #H Thyroid Stimulating Hormone (TSH) 1.090 Ammonia 38 #H Test 06/02/16 00:00 06/02/16 01:09 06/02/16 01:50 06/02/16 13:00 Urine Amphetamines Screen Negative Urine Bacteria MODERATE Urine Barbiturates Negative Urine Benzodiazepines Screen Negative Urine Bilirubin NEGATIVE Urine Cannabinoids Negative Urine Clarity CLEAR Urine Cocaine Screen Negative Urine Color YELLOW Urine Glucose NEGATIVE Urine Hemoglobin TRACE Urine Ketones NEGATIVE Urine Leukocyte Esterase NEGATIVE Urine Microscopic RBC NONE SEEN Urine Microscopic WBC 5-10 Urine Nitrite NEGATIVE Urine Opiates Screen Negative Urine Specific [place]ckley 1.015 Urine Total Protein NEGATIVE Urine Urobilinogen 0.2 E.U./dL Urine pH 5.5 Arterial Blood HCO3 15.7 L Arterial Blood Base Excess -7.6 L Arterial Blood Oxygen Saturation 93.7 L Conor Test N/A Arterial Blood Gas Puncture Site Right Brachial Arterial Blood Carboxyhemoglobin 0.3 Arterial Blood Date Drawn 06/02/2016 1:17:02 AM Arterial Blood Methemoglobin 0.6 Arterial Blood pCO2 (Temp correct) 25.5 L Arterial Blood pH (Temp corrected) 7.406 Arterial Blood pO2 (Temp corrected) 75.9 L Blood Gas A-a O2 Differential 43.3 H Blood Gas Actual Respiration Rate 31 Blood Gas Critical Value Read Back Ariana DONAHUE Blood Gas Modality ROOM AIR Blood Gas Notified Time 06/02/2016 1:25:52 AM Blood Gas Notified Whom BL Blood Gas Specimen Source Blood arterial Blood Gas Temperature 37.0 FiO2 21.0 Oxyhemoglobin Percent 92.9 L Total Hemoglobin 10.9 L Lactic Acid Level 6.9 *H 11.9 *H Alanine Aminotransferase (ALT/SGPT) 30 Albumin 1.9 L Albumin/Globulin Ratio 0.55 Alkaline Phosphatase 141 H Anion Gap 20 H Aspartate Amino Transf (AST/SGOT) 70 H Blood Morphology Comment Blood Urea Nitrogen 52 H Calcium Level 9.8 Carbon Dioxide Level 13 L Chloride Level 103 # Creatinine 1.51 H Direct Bilirubin 0.00 Globulin 3.40 H Glucose Level 161 Hematocrit 28.8 #L Hemoglobin 10.1 #L Indirect Bilirubin 0.9 Ionized Calcium (Measured) 1.4 Magnesium Level 2.2 Mean Corpuscular Hemoglobin 34.3 H Mean Corpuscular Hemoglobin Concent 35.1 Mean Corpuscular Volume 97.7 Mean Platelet Volume 7.2 L Platelet Count 97 #L Potassium Level 5.8 H Red Blood Count 2.95 #L Red Cell Distribution Width 19.3 H Sodium Level 130 L Total Bilirubin 0.9 Total Protein 5.3 L White Blood Count 144.8 H Test 06/02/16 14:48 06/02/16 17:00 Lactic Acid Level 12.4 *H 22.4 *H Activated Partial Thromboplast Time > 180.0 *H Alanine Aminotransferase (ALT/SGPT) 73 H Albumin 1.3 L Albumin/Globulin Ratio 0.68 Alkaline Phosphatase 90 Anion Gap 28 #H Aspartate Amino Transf (AST/SGOT) 202 #H Blood Morphology Comment Blood Urea Nitrogen 47 H Calcium Level 9.7 Carbon Dioxide Level 8 #*L Chloride Level 110 Creatinine 1.75 H D-Dimer > 34524.00 H Direct Bilirubin 0.00 Fibrinogen < 40.0 L Globulin 1.90 Glucose Level 109 # Hematocrit 15.8 #L Hemoglobin 5.0 #*L INR International Normalized Ratio > 6.00 *H Indirect Bilirubin 0.4 Mean Corpuscular Hemoglobin 32.0 Mean Corpuscular Hemoglobin Concent 31.6 L Mean Corpuscular Volume 101.3 H Mean Platelet Volume 8.3 Nucleated Red Blood Cells # Plasma Fibrin Degradation Products Platelet Count 56 L Potassium Level 6.0 H Prothrombin Time > 100.0 #H Prothrombin Time Ratio 7.8 Red Blood Count 1.56 #L Red Cell Distribution Width 19.8 H Sodium Level 140 Thrombin Time 30.0 H Total Bilirubin 0.4 Total Protein 3.2 #L White Blood Count 91.3 #H Medications Medications Current Medications Acetaminophen (Tylenol Tab) 650 mg Q6H PRN PO MILD PAIN LEVEL 1-3; Start at 09:30 Cyclobenzaprine HCl (Flexeril) 10 mg QAM PO ; Start 06/03/16 at 09:00 Furosemide (Lasix) 20 mg DAILY PO ; Start 06/03/16 at 09:00 Lactulose (Enulose) 20 gm Q8 PO Last administered on 06/02/16t 15:11; Admin Dose 20 GM; Start 06/02/16 at 14:00 Metoprolol Succinate (Toprol Xl) 25 mg BID PO ; Start 06/02/16 at 21:00 Multivitamins Therapeutic (Theragran) 1 tab DAILY PO ; Start 06/03/16 at 09:00 Rifaximin (Xifaxan) 550 mg BID PO ; Start 06/02/16 at 21:00 Simethicone (Mylicon) 80 mg Q6H PRN PO DISTENSION/GAS/BLOATING; Start 06/02/16 at 09:30 Thiamine HCl (Vitamin B1) 100 mg DAILY PO ; Start 06/03/16 at 09:00 Ferrous Sulfate (Feosol Liquid Cup) 300 mg DAILY PO ; Start 06/03/16 at 09:00 Metronidazole (Flagyl) 500 mg Q8 PO ; Start 06/02/16 at 15:08 Vancomycin HCl 250 mg 250 mg Q6 PO ; Start 06/02/16 at 18:00 Epinephrine 4 mg/ Dextrose 250 ml @ 3.75 mls/hr TITRATE IV Last administered on 06/02/16t 17:15; Admin Dose 3.75 MLS/HR; Start 06/02/16 at 17:00 Norepinephrine 250 ml @ 1.875 mls/ hr TITRATE IV Last administered on t 18:27; Admin Dose 1.875 MLS/HR; Start 06/02/16 at 17:09; Stop 06/03/16 at 06:59 Sodium Bicarbonate 150 meq/Dextrose 1,150 ml @ 200 mls/hr Q5H45M IV ; Start at 19:00 Octreotide Acetate 1 mg/ Sodium Chloride 100 ml @ 5 mls/hr Q20H IV ; Start 06/02 at 19:00 Pantoprazole 80 mg/Sodium Chloride 100 ml @ 10 mls/hr Q10H IV ; Start 06/02/16 at 19:00 Norepinephrine 16 mg/Dextrose 500 ml @ 1.87 mls/hr TITRATE IV ; Start 06/02/16 at 17:30 Vancomycin HCl (Vancocin) 250 ml @ 125 mls/hr Q24H IVPB ; Start 06/03/16 at 09: 00 Miscellaneous Information RANDOM VANCOMYCIN LEVEL 2... ONCE ONCE XX ; Start at 05:00; Stop 06/03/16 at 05:01 Vasopressin/ Dextrose (Vasostrict/D5W) 60 ml @ 1.2 mls/hr Q12H IV ; Start 06/02 at 19:00 Hydrocortisone (Solu-Cortef) 100 mg Q8 IV ; Start 06/02/16 at 17:45 NATHALIA PHAN MD Jun 02, 2016 22:01
[2016-06-02 23:01] LABS: LYMPHOCYTES # 4.3 10^3/ul (0.8-2.9); MONOCYTE # 1.4 10^3/ul (0.3-0.9); MYELOCYTES # 31.9; NEUTROPHIL # 75.3 10^3/ul (1.6-7.5)
[2016-06-02 23:03] LABS: PLATELET ESTIMATE PLT APPEAR DECREASED
[2016-06-02 23:07] LABS: EOSINOPHILS # 0.9 10^3/ul (0.0-0.5); LYMPHOCYTES # 14.6 10^3/ul (0.8-2.9); MONOCYTE # 1.8 10^3/ul (0.3-0.9); NEUTROPHIL # 32.9 10^3/ul (1.6-7.5)
[2016-06-02 23:08] LABS: BURR CELLS 3+; PLATELET ESTIMATE PLT APPEAR DECREASED
[2016-06-03] MEDS ORDERED: VANCOMYCIN 1 GM in NS 250 ML IVPB SCH ×2 (01:00→09:00)
--- NOTE | 2016-06-03 04:13 | CONS ---
DATE OF ADMISSION: 06/02/2016 DATE OF CONSULTATION: 06/02/2016 TYPE OF CONSULTATION: Pulmonary. REASON FOR CONSULTATION: Acute cardiopulmonary arrest and respiratory failure. PRIMARY PHYSICIAN: Dr. Mario Castro HISTORY OF PRESENT ILLNESS: As I was rounding in the ICU, I overheard that a patient who had just b een transferred to the ICU was found to have arterial oxygen desaturations. As I looked in the room just to ensure the patient was stable, I noted the patient was unresponsive with agonal breathing w ith arterial oxygen desaturation. At this point, I proceeded to intubate the patient. Thereafter, the patient was noted to go into gradually bradycardic rhythm with PEA. ACLS was initiated, and demian daley received numerous rounds of epinephrine, sodium bicarbonate, calcium chloride, as well as vasop ressin. He also had one defibrillation synchronized for ventricular fibrillation. During this, I a lso had a central line that I placed in order to be able to adequately resuscitate the patient with fluids, albumin, and blood products given that this appears to be a massive GI bleed possibly of celina iceal origin. Briefly, back this patient's history, which I have reviewed in the records, it appear s that he has a history of hypertension, heart failure, likely cirrhosis with end-stage renal diseas e, renal failure and who was admitted earlier this morning for acute kidney injury and hyponatremia. He was transferred to the ICU given a deterioration in his condition, especially in conjunction wi th acute severe leukocytosis. PAST MEDICAL HISTORY: Incomplete data. Otherwise, as noted in HPI. ALLERGIES: NONE. MEDICATIONS: Please see MAR. SOCIAL HISTORY: Lives in a facility. Otherwise, unknown history of illicit drug use. History of a lcohol abuse is present. FAMILY HISTORY: Unable to obtain. REVIEW OF SYSTEMS: Unable to obtain. PHYSICAL EXAMINATION: VITAL SIGNS: Currently, the patient is unresponsive on mechanical ventilation, heart rate is in the 160s, sinus tachycardia, blood pressure is supported on epinephrine drip at 101/67, oxygen saturati on is 98% on 100% on mechanical ventilation. GENERAL: An unresponsive, severely pale gentleman on mechanical ventilation. HEENT: Over a liter of coffee grounds has been aspirated within a few minutes from his NG tube. ET tube is in place. NECK: Supple. CARDIOVASCULAR: Tachycardic, S1, S2. CHEST: Coarse breath sounds but present bilaterally. ABDOMEN: Distended, decreased breath sounds. EXTREMITIES: No cyanosis, clubbing, or edema. LABORATORY DATA: WBC is 144 thousand, hemoglobin is 10.1, platelets are 97. Lactic acid is 12.4, p otassium is 5.8, BUN is 58, creatinine is 1.5. INR is 2.3. IMPRESSION: Acute cardiopulmonary arrest in a gentleman with multiple medical problems, likely end- stage liver disease complicated by massive upper GI hemorrhage, possibly variceal origin, altered me ntal status due to hepatic encephalopathy, acute renal failure, as well as possibly an underlying my eloproliferative disorder. This patient's arrest is likely of hypovolemic versus septic origin, mos t likely hypovolemic due to the massive upper GI bleed. RECOMMENDATIONS: At this point 1. Stabilize the patient with massive transfusion protocol with packed red blood cells, FFP, and pl atelets 2. Aggressive fluid resuscitation with saline and albumin. 3. Continuation of pressors for the time being. 4. Broad spectrum antibiotics. 5. Sodium bicarbonate drip given the renal failure and the hyperkalemia. 6. The patient is not a candidate at this point for hemodialysis. 7. This patient's prognosis given the multiorgan failure and prolonged CPR is extremely poor. 8. I have spoken with Dr. Mario Castro, and we are discussing this with family with plans to poten filomenay not pursue further aggressive measures given the overall futility. Dictated By: MANOLO LEONG MD NK/NTS Conf#: [id number] DID#: [id number] CC: MEAGAN DOMINGUEZ MD; MARIO CASTRO MD;*EndCC*
--- NOTE | 2016-06-03 04:32 | CONS ---
DATE OF ADMISSION: 06/02/2016 DATE OF CONSULTATION: 06/02/2016 ADDENDUM: As it pertains to this gentleman's massive upper GI bleed, I have initiated on octreotide drip, Prot desi drip. He is having massive infusion with IV fluids, packed red blood cells, FFP, and platelets with plans for the patient to potentially undergo emergent endoscopy which would be hopefully of di agnostic and therapeutic benefit. The environmental conservation officer has been contacted and is aware. Dictated By: MANOLO HAMMOND/LAST Conf#: [id number] DID#: [id number]
[2016-06-03] MEDS ORDERED: PANTOPRAZOLE (EC) 40 MG TAB PO SCH (06:00)
--- NOTE | 2016-06-03 06:02 | HP ---
DATE OF ADMISSION: 06/02/2016 CHIEF COMPLAINT: Generalized weakness, failure to thrive. HISTORY OF PRESENT ILLNESS: The patient is a 61-year-old male sent from a rehab facility for having generalized weakness, failure to thrive. The patient has a history of C. diff, GI bleed, alcohol a buse, and hypertension. On evaluation, the patient was notably septic, confused. History was mostl y obtained by the family who states that the patient has quit alcohol several months ago. He was ho meless for some time. The patient was confused during my H and P. He had no other complaints. PAST MEDICAL HISTORY: As per HPI. HOME MEDICATIONS: 1. Iron. 2. Tylenol. 3. Lasix. 4. Lactulose. 5. Omeprazole. 6. Multivitamin. 7. Rifampin. 8. Simethicone. 9. Spirolactone. 10. Thiamine. 11. Gerber. ALLERGIES: NO KNOWN DRUG ALLERGIES. FAMILY HISTORY: Noncontributory. SOCIAL HISTORY: History of alcohol abuse with no reports of any tobacco or drug abuse. REVIEW OF SYSTEMS: A 12-point review of systems difficult to obtain as the patient is confused. PHYSICAL EXAMINATION: VITAL SIGNS: Temperature is 97.0, pulse 148, respiratory rate 31, BP is 62/36, saturation 95%. GENERAL: Confused. HEENT: Normocephalic, atraumatic. LUNGS: Clear to auscultation. CARDIOVASCULAR: Regular rate and rhythm. ABDOMEN: Nondistended, nontender, soft. EXTREMITIES: No clubbing, cyanosis, or edema. LABORATORIES: White count was 125, hemoglobin was 13.0, platelets were 147. Chemistry: Sodium is 123, potassium was 6.2, chloride is 92, carbon dioxide is 20, BUN is 47, creatinine is 1.43. Lactic acid is 6.4. Calcium is 11.5. INR is 2.28. Urine was normal. Urine toxicology was negative. DIAGNOSTICS: Brain CT showed no evidence of any acute process. Abdominopelvic CT showed colitis. The patient has a history of Clostridium difficile colitis, mildly distended stomach, cirrhosis, mil d abdominal free fluid. Chest x-ray showed right basilar atelectatic scarring. ASSESSMENT AND PLAN: 1. Shock possibly secondary to sepsis versus fulminant liver failure. 2. Gastrointestinal bleed. Consult GI. 3. History of alcohol abuse. 4. Severe leukocytosis. Consult hematology. 5. History of Clostridium difficile colitis. Have checked C. diff, and it was positive. ID was co nsulted. 6. Acute kidney disease. Nephrology is consulted. 7. Prophylaxis: SCDs. Dictated By: POONAM PÉREZ MD BS/NTS Conf#: [id number] DID#: [id number]
--- NOTE | 2016-06-03 07:49 | DS ---
DATE OF ADMISSION: 06/02/2016 DATE OF DISCHARGE: 06/02/2016 CAUSE OF : 1. Shock, likely secondary to sepsis or fulminant liver failure. 2. Upper gastrointestinal bleed, likely secondary to variceal bleed from history of alcoholic cirrh osis. 3. History of alcohol abuse. 4. History of Clostridium difficile HOSPITAL COURSE: The patient is a 61-year-old male with history of alcohol-related liver disease, C . diff colitis. The patient presented from a rehab facility with generalized weakness. The patient was noted to be in shock with hypotension, tachycardia, and severe leukocytosis. Lactic acid was a lso elevated as high as 22.4. The patient was transferred to the ICU. The patient ultimately becam e more obtunded. He required intubation. He then became pulseless. He was coded multiple times. Ultimately he was put on epinephrine drip after he had a return of circulation. He was defibrillate d at one point when he had a shockable rhythm. The patient was maintained on epinephrine drip. Anand farley had decided, after speaking with the car dispatcher, to make the patient DNR as his prognosis was v cb poor. GI was consulted. The patient was given packed red blood cells and was ordered for plate lets and FFP. The patient ultimately succumbed to his underlying illnesses, and the patient went to asystole and was pronounced by myself. Once again, the patient was made a DNR after discussion bet ween the car dispatcher and the family. Once again, the patient was pronounced at approximately 1800 o n 06/02/2016. Dictated By: POONAM PÉREZ MD BS/NTS Conf#: [id number] DID#: [id number]
[2016-06-03] MEDS ORDERED: SPIRONOLACTONE (5 MG/ML PO SYG) PO SCH (09:00)
[2016-06-03] MEDS ORDERED: FUROSEMIDE 20 MG TAB PO SCH (09:00)
[2016-06-03] MEDS ORDERED: MULTIVITAMINS THERAPEUTIC TAB PO SCH (09:00)
[2016-06-03] MEDS ORDERED: FERROUS SULFATE 60 MG/ML 5ML CUP PO SCH (09:00)
[2016-06-03] MEDS ORDERED: CYCLOBENZAPRINE 10 MG TAB PO SCH (09:00)
[2016-06-03] MEDS ORDERED: SPIRONOLACTONE 25 MG TAB PO SCH (09:00)
[2016-06-03] MEDS ORDERED: THIAMINE 100 MG TAB PO SCH (09:00)
--- NOTE | 2016-06-03 21:50 | RADRPT ---
Vent Rate: 183 bpm RR Interval: 0 msec ND Interval: 0 msec QRS Duration: 98 msec QT Interval: 268 msec QTC Interval: 467 msec P-R-T [place]: 0 - 176 - 2 degrees Supraventricular tachycardia with fusion complexes Possible Lateral infarct , age undetermined Inferior infarct , age undetermined Abnormal ECG Electronically Signed By: Alex Reyna [id number]
== END 2016-06-02 17:46 | disposition expired | DRG 871 ==
LOC: E/R 21:41 → TEL 06-02 00:25 → ICU 06-02 11:59
PROVIDERS: ADMIT Internal Medicine; ATTEND Internal Medicine
PROC: 0BH17EZ Insertion of Endotracheal Airway into Trachea, Via Natural or Artificial Opening (ICD-10-PCS; principal; 2016-06-02)
PROC: 5A1935Z Respiratory Ventilation, Less than 24 Consecutive Hours (ICD-10-PCS; 2016-06-02)
PROC: 06HN33Z Insertion of Infusion Device into Left Femoral Vein, Percutaneous Approach (ICD-10-PCS; 2016-06-02)
PROC: 30233N1 Transfusion of Nonautologous Red Blood Cells into Peripheral Vein, Percutaneous Approach (ICD-10-PCS; 2016-06-02)
DX: A41.9 Sepsis, unspecified organism (principal); K72.00 Acute and subacute hepatic failure without coma; J96.00 Acute respiratory failure, unspecified whether with hypoxia or hypercapnia; R65.21 Severe sepsis with septic shock; N17.9 Acute kidney failure, unspecified; K92.2 Gastrointestinal hemorrhage, unspecified; E87.5 Hyperkalemia; I46.9 Cardiac arrest, cause unspecified; I25.10 Atherosclerotic heart disease of native coronary artery without angina pectoris; K70.30 Alcoholic cirrhosis of liver without ascites; I50.9 Heart failure, unspecified; I11.0 Hypertensive heart disease with heart failure
CPT/HCPCS: 31500; 36415; 36430; 36600; 70450; 71010; 74176; 80053; 80076; 80307; 81001; 81003; 82140; 82330; 82803; 83605; 83735; 84443; 84484; 85025; 85049; 85362; 85378; 85384; 85610; 85670; 85730; 86850; 86900; 86901; 86920; 87040; 87045; 87075; 87086; 92950; 93005; 94002; 96365; 96366; 96367; 96375; 96376; C9113; J0171; J0330; J0461; J0692; J1815; J2405; J3370; J7030; J7040; J7070; P9016; P9045; P9047